=== PATIENT | male | born 1945 | race Hispanic/Latino ===

== ENCOUNTER → 2019-06-08 | Outpatient (CLI) | payer OTHER ==
[2019-06-08 13:26] LABS: CREATININE 1.3 mg/dL (0.5-1.5)
== END | disposition home or self-care (01) ==
LOC: LAB 12:14
PROVIDERS: ATTEND Internal Medicine Cardiovascular Disease
DX: I67.9 Cerebrovascular disease, unspecified (principal); I73.9 Peripheral vascular disease, unspecified
CPT/HCPCS: 36415; 82565; 84520

== ENCOUNTER → 2019-06-09 | Outpatient (CLI) | payer OTHER ==
[~2019-06-09] MED LIST: IOHEXOL-350 75 ML VIAL IV ONE
== END | disposition home or self-care (01) ==
LOC: RAH 07:47
PROVIDERS: ATTEND Internal Medicine Cardiovascular Disease
DX: I70.293 Other atherosclerosis of native arteries of extremities, bilateral legs (principal)
CPT/HCPCS: 75635; Q9967

== ENCOUNTER → 2019-06-18 | Outpatient (CLI) | payer OTHER | END | disposition home or self-care (01) | LOC: SHCH 13:20 | PROVIDERS: ATTEND Internal Medicine Cardiovascular Disease | DX: I65.23 Occlusion and stenosis of bilateral carotid arteries (principal) | CPT/HCPCS: 93880 ==

== ENCOUNTER → 2019-06-22 | Outpatient (CLI) | payer OTHER ==
[~2019-06-22] VITALS: Ht 167.6 cm; Wt 62.6 kg
[~2019-06-22] MED LIST changes: -IOHEXOL-350 75 ML VIAL IV ONE; +REGADENOSON 0.4 MG/5 ML PF SYG IVP SCH
== END | disposition home or self-care (01) ==
LOC: SHCH 08:24 → EDUNIT# 08:30
PROVIDERS: ATTEND Internal Medicine Cardiovascular Disease
DX: I10 Essential (primary) hypertension (principal)
CPT/HCPCS: 78452; 93017; 96374; A9500 ×2; J2785

== ENCOUNTER 2019-08-13 09:37 | Day surgery (SDC) | payer OTHER ==
[2019-08-10 13:00] LABS: BASOPHILS % (AUTO) 1.3 % (0.0-5.0); EOSINOPHILS % (AUTO) 3.7 % (0.0-8.0); HEMATOCRIT 30.9 % (42-54); LYMPHOCYTES % (AUTO) 35.7 % (21.0-51.0); MEAN CORPUSCULAR HEMOGLOBIN 27.3 pg (27.0-33.0); MEAN CORPUSCULAR HGB CONC 32.7 g/dL (32.0-36.0); MEAN CORPUSCULAR VOLUME 83.4 fL (79-99); NEUTROPHILS % (AUTO) 52.3 % (40.0-77.0); NUCLEATED RED BLOOD CELLS 0.1 % (0.0-0.19); PLATELET COUNT (AUTO) 299 K/uL (130-400); RED BLOOD CELL COUNT(AUTO) 3.71 MIL/uL (4.50-6.20); RED CELL DISTRIBUTION WIDTH 17.5 % (11.0-15.5); WHITE BLOOD COUNT (AUTO) 6.1 K/uL (4.8-10.8)
[2019-08-10 13:07] LABS: CREATININE 1.4 mg/dL (0.5-1.5); POTASSIUM 4.6 mmol/L (3.5-5.1)
[2019-08-10 13:12] LABS: INR 1.02 (0.85-1.15); PARTIAL THROMBOPLASTIN TIME 24.3 SEC (26.3-35.5); PROTHROMBIN TIME 10.7 SEC (9.6-11.6)
[2019-08-10 13:38] VITALS: BP 155/73
[2019-08-10 14:16] LABS: APPEARANCE,URINE Clear (CLEAR); BILIRUBIN,URINE Negative (NEGATIVE); COLOR,URINE Yellow (YELLOW); GLUCOSE, URINE (UA) 500 mg/dL (NEGATIVE); KETONES,URINE Negative (NEGATIVE); LEUKOCYTE ESTERASE ,URINE Negative (NEGATIVE); NITRATE,URINE Negative (NEGATIVE); OCCULT BLOOD,URINE Negative (NEGATIVE); PH,URINE 6.5 (5.0-8.0); PROTEIN,URINE Negative (NEGATIVE); UROBILINOGEN,URINE 0.2 mg/dL (0.2-1.0)
--- NOTE | 2019-08-12 13:36 | NUR ---
LABS ABNORMAL LABS REPORTED TO [facility], NO FURTHER ORDERS GIVEN
[~2019-08-13] VITALS: Ht 168.9 cm; Wt 61.6 kg
[2019-08-13] VITALS (10 sets, daily range): BP systolic 101–163; BP diastolic 54–92
[~2019-08-13 09:37] MED LIST changes: +ACET1TAB23 PO; +ATOR-2 PO; +AUD IH; +CETI10TA57 PO; +CLOP75TA32 PO; +FENO145T37 PO; +FLUT9.9S NS; +GLIP5TAB11 PO; +LISI30TA4 PO; +METF-446 PO; +METO-391 PO; +MOME220A2 IH; +OMEP20TA25 PO; -REGADENOSON 0.4 MG/5 ML PF SYG IVP SCH
[2019-08-13] MEDS ORDERED: SODIUM CHLORIDE 0.9% 1000ML 1,000 ML IV ONE (09:39)
--- NOTE | 2019-08-13 10:45 | NUR ---
ASSESSMENT PT HERE FOR PROCEDURE. DENIES ANY PAIN, SOB. DAUGHTER AT BEDSIDE.
[2019-08-13] MEDS ORDERED: SODIUM BICARB 50MEQ 50ML VIAL ONE (12:19)
[2019-08-13] MEDS ORDERED: HEPARIN SODIUM 1000UNIT/ML 10ML VIAL ONE (12:19)
[2019-08-13] MEDS ORDERED: NITROGLYCERIN 5 MG/ML 10 ML VIAL IV ONE (12:19)
[2019-08-13] MEDS ORDERED: IODIXANOL 320 MG/ML 100 ML VIAL ONE (12:19)
[2019-08-13] MEDS ORDERED: LIDOCAINE HCL 2% 20ML ONE (12:20)
--- NOTE | 2019-08-13 13:43 | NUR ---
PROCEDURE PT TAKEN TO PROCEDURE VIA BED BY ALUMINUM MOLDING MACHINE OPERATOR STAFF JOVANA CANNON.
[2019-08-13] MEDS ORDERED: MIDAZOLAM HCL 1 MG/ML 2ML VIAL ONE (13:55)
[2019-08-13] MEDS ORDERED: MEPERIDINE-PF 25 MG/ML SYG ONE (13:55)
[2019-08-13] MEDS ORDERED: HYDRALAZINE HCL 20 MG/ML VIAL ONE (14:52)
[2019-08-13] MEDS ORDERED: ATROPINE SULFATE 0.1 MG/ML 10 ML SYG IVP ONE (15:15)
[2019-08-13] MEDS ORDERED: SODIUM CHLORIDE 0.9% 1000ML 1,000 ML IV SCH (15:26)
[2019-08-13] MEDS ORDERED: GLUCAGON 1MG KIT 1 MG ML IM PRN (15:30)
[2019-08-13] MEDS ORDERED: DEXTROSE 50%-WATER 50 ML DISP.SYRIN IV PRN (15:30)
[2019-08-13] MEDS ORDERED: ACETAMINOPHEN-CODEINE 300/30MG TAB PO PRN ×2 (15:30)
--- NOTE | 2019-08-13 15:36 | NUR ---
PATIENT IN CLINICAL CONSULTANT HOLDING AREA FOR REMOVAL OF RT BRACHIAL SITE. 6FR SHEATH REMOVED USING D-STAT AND MANUAL PRESSURE. PATIENT TOLERATING WELL. VS STABLE - BP 152/77, HR 79, RR 23, O2 SAT 98% RA. BS CHECK - 91.
--- NOTE | 2019-08-13 15:52 | NUR ---
RIGHT BRACHIAL SITE WITHOUT BLEEDING OR HEMATOMA. DRESSING APPLIED. PRESSURE DRESSING AND SPLINT APPLIED TO ARM. PT TRANSFERRED BACK TO [facility]. STRONG RT RADIAL PULSE. DENIES TINGLING OR NUMBNESS TO RT HAND. VS STABLE - BP 132/56, HR 71, RR 19, O2 SAT 99% RA.
--- NOTE | 2019-08-13 16:10 | NUR ---
ASSESSMENT RECEIVED PT FROM FIBERGLASS LAMINATOR STaff. PT AAOX3. PRESSURE DRSG IN PLACE TO RIGHT BRACHIAL SITE. SOFT TO TOUCH. NO BLEEDING, OOZING NOTED. DAUGHTER AT BEDSIDE. INSTRUCTED PT ON IMPORTANCE OF NOT MOVING, LIFTING RIGHT ARM. PT VERBALIZED UNDERSTANDING.
--- NOTE | 2019-08-13 16:25 | NUR ---
REPORT REPORT GIVEN TO Jacklyn TAY RN.
[2019-08-13] MEDS ORDERED: INSULIN HUMULIN R 100 UNIT/ML 3ML SQ SCH (16:30)
--- NOTE | 2019-08-13 20:15 | NUR ---
PT AAOX3, NO C/O PAIN TO RT BRACHIAL ARM, DSTAT TO RT ARM IS D/I, NO HEMATOMA OR BLEEDING. POST CARE INSTRUCTIONS GIVEN TO PT AND DAUGHTER, BOTH VERBALIZED UNDERSTANDING. PT GIVEN PRESCRIPTION. PT STABLE, VITALS STABLE NO DISTRESS. PT DRESSED ON HIS OWN. PT TAKEN OUT IN WHEELCHAIR, DRIVEN HOME BY DAUGHTER.
== END 2019-08-13 20:15 | disposition home or self-care (01) ==
LOC: DAH 09:37
PROVIDERS: ATTEND Internal Medicine Cardiovascular Disease
DX: I70.213 Atherosclerosis of native arteries of extremities with intermittent claudication, bilateral legs (principal); I77.811 Abdominal aortic ectasia; I10 Essential (primary) hypertension; E78.5 Hyperlipidemia, unspecified; E11.9 Type 2 diabetes mellitus without complications; J44.9 Chronic obstructive pulmonary disease, unspecified; F17.210 Nicotine dependence, cigarettes, uncomplicated; F12.90 Cannabis use, unspecified, uncomplicated; Z88.0 Allergy status to penicillin; Z79.84 Long term (current) use of oral hypoglycemic drugs; Z79.899 Other long term (current) drug therapy; Z79.01 Long term (current) use of anticoagulants; Z86.73 Personal history of transient ischemic attack (TIA), and cerebral infarction without residual deficits; Z98.890 Other specified postprocedural states
CPT/HCPCS: 36246; 36415; 71045; 75625; 75716; 80048; 81003; 82948 ×2; 85025; 85610; 85730; 93005; A4215 ×2; A4216; A4221; A4222; A4223 ×3; A4606; C1769; C1894; J0360; J1644 ×2; J2175; J2250; J3490 ×3; J7030; Q9967; 99156; 99157; J0461

== ENCOUNTER 2019-08-24 11:37 | Observation (INO) | payer OTHER ==
[~2019-08-24] VITALS: Ht 167.6 cm; Wt 58.3 kg
[2019-08-24 12:04] LABS: BASOPHILS % (AUTO) 3.3 % (0.0-5.0); EOSINOPHILS % (AUTO) 3.2 % (0.0-8.0); LYMPHOCYTES % (AUTO) 38.6 % (21.0-51.0); MEAN CORPUSCULAR HEMOGLOBIN 26.2 pg (27.0-33.0); MEAN CORPUSCULAR HGB CONC 32.7 g/dL (32.0-36.0); MEAN CORPUSCULAR VOLUME 80.1 fL (79-99); MONOCYTES % (AUTO) 7.4 % (3.0-13.0); NEUTROPHILS % (AUTO) 47.5 % (40.0-77.0); PLATELET COUNT (AUTO) 357 K/uL (130-400); RED BLOOD CELL COUNT(AUTO) 3.63 MIL/uL (4.50-6.20); RED CELL DISTRIBUTION WIDTH 16.8 % (11.0-15.5); WHITE BLOOD COUNT (AUTO) 7.8 K/uL (4.8-10.8)
[2019-08-24 12:07] LABS: CREATININE 1.5 mg/dL (0.5-1.5); POTASSIUM 4.7 mmol/L (3.5-5.1)
[2019-08-24] MEDS ORDERED: SODIUM CHLORIDE 0.9% 500ML 500 ML IV ONE ×2 (12:07→12:47)
[2019-08-24 12:11] LABS: ALBUMIN 3.8 g/dL (3.5-5.0); BILIRUBIN,TOTAL 0.3 mg/dL (0.2-1.0)
[2019-08-24] MEDS ORDERED: DIPHENOXYLATE HCL/ATROPINE 2.5/0.025 MG TAB PO ONE (12:47)
[2019-08-24] MEDS ORDERED: LACTATED RINGERS 1000ML 1,000 ML IV SCH (15:46)
[2019-08-24] MEDS ORDERED: ONDANSETRON HCL 4 MG/2 ML VIAL IV PRN (16:00)
[2019-08-24] MEDS ORDERED: SODIUM CHLORIDE 0.9% 1000ML 0 ML IV ONE (16:22)
[2019-08-24] MEDS ORDERED: PNEUMOCOCCAL VACCINE POLYVALENT 0.5 ML/VIAL [PPV] IM ONE (16:30)
[2019-08-24] MEDS ORDERED: SODIUM CHLORIDE 0.9% 1000ML 1,000 ML IV ONE (16:34)
--- NOTE | 2019-08-24 20:40 | NUR ---
ADMISSION. BROUGHT UP INTO ROOM 404 VIA STRETCHER, AWAKE, ALERT AND RESPONSIVE. ACCOMPANIED BY DAUGHTER AT BEDSIDE. ABLE TO AMBULATE AND VERBALIZE NEEDS. NO C/O PAIN OR DISCOMFORT AT THIS TIME. PATIENT AND DAUGHTER ORIENTED TO ROOM, CALL MEJIA WITHIN REACH, BED IN LOWEST POSITION. Addendum: 08/24/19 at 2049 by JAX KIM RN Amended: Links added.
[2019-08-24 20:45] VITALS: BP 172/70
[2019-08-24] MEDS ORDERED: FAMOTIDINE/PF 20 MG/2 ML VIAL IV SCH (21:00)
[2019-08-24 21:29] VITALS: BP 148/71
[2019-08-24] MEDS: SODIUM CHLORIDE 0.9% 1000ML 1,000 ML IV SCH (21:32)
[2019-08-25 00:21] VITALS: BP 141/66
[2019-08-25] MEDS ORDERED: ACETAMINOPHEN 325 MG TAB PO PRN (00:30)
[2019-08-25 04:21] VITALS: BP 142/67
[2019-08-25 05:37] LABS: BASOPHILS % (AUTO) 1.4 % (0.0-5.0); EOSINOPHILS % (AUTO) 2.8 % (0.0-8.0); HEMATOCRIT 25.7 % (42-54); LYMPHOCYTES % (AUTO) 29.8 % (21.0-51.0); MEAN CORPUSCULAR HGB CONC 33.3 g/dL (32.0-36.0); MEAN CORPUSCULAR VOLUME 81.1 fL (79-99); MONOCYTES % (AUTO) 8.9 % (3.0-13.0); NEUTROPHILS % (AUTO) 57.1 % (40.0-77.0); NUCLEATED RED BLOOD CELLS 0.1 % (0.0-0.19); PLATELET COUNT (AUTO) 275 K/uL (130-400); RED BLOOD CELL COUNT(AUTO) 3.17 MIL/uL (4.50-6.20); RED CELL DISTRIBUTION WIDTH 16.4 % (11.0-15.5); WHITE BLOOD COUNT (AUTO) 6.8 K/uL (4.8-10.8)
[2019-08-25] MEDS: SODIUM CHLORIDE 0.9% 1000ML 1,000 ML IV SCH (05:37)
[2019-08-25 05:56] LABS: ALBUMIN 3.1 g/dL (3.5-5.0); BILIRUBIN,TOTAL 0.3 mg/dL (0.2-1.0); CREATININE 1.2 mg/dL (0.5-1.5); TOTAL PROTEIN, SERUM 6.6 g/dL (6.0-8.3)
[2019-08-25 07:59] VITALS: BP 150/71
[2019-08-25] MEDS ORDERED: ENOXAPARIN SODIUM 30 MG/0.3 ML SQ SCH (09:00)
[2019-08-25 11:47] VITALS: BP 138/72
== END 2019-08-25 12:54 | disposition home or self-care (01) ==
LOC: EDH 11:37 → INTOOBSV 15:46 → EDHIP 15:46 → 4AH 20:33
PROVIDERS: ADMIT Internal Medicine; ATTEND Internal Medicine
DX: K52.9 Noninfective gastroenteritis and colitis, unspecified (principal); R19.7 Diarrhea, unspecified; E86.1 Hypovolemia; N17.9 Acute kidney failure, unspecified; R53.1 Weakness; F17.200 Nicotine dependence, unspecified, uncomplicated; E78.00 Pure hypercholesterolemia, unspecified; I10 Essential (primary) hypertension; E78.5 Hyperlipidemia, unspecified; E11.9 Type 2 diabetes mellitus without complications; Z90.49 Acquired absence of other specified parts of digestive tract; Z79.84 Long term (current) use of oral hypoglycemic drugs; Z79.899 Other long term (current) drug therapy; Z88.0 Allergy status to penicillin
CPT/HCPCS: 36415 ×2; 74176; 80053 ×2; 80061; 82948 ×3; 83036; 83605; 83690 ×2; 85025 ×2; 96361 ×2; 96372; 96374; 99284; A4600; G0378 ×2; J1650; J3490; J7030; J7040 ×2; J7120; 90732; G0009

== ENCOUNTER → 2020-05-11 | Outpatient (CLI) | payer OTHER ==
[~2020-05-11] MED LIST changes: +FENO145T26 PO; -FENO145T37 PO; +HYDR25SU11 PR; -METO-391 PO
== END | disposition home or self-care (01) ==
LOC: RAH 10:35
PROVIDERS: ATTEND Internal Medicine Gastroenterology
DX: R14.0 Abdominal distension (gaseous) (principal)
CPT/HCPCS: 78264; A9541

== ENCOUNTER 2020-08-28 11:51 | Inpatient (IN) | payer OTHER ==
[~2020-08-28] VITALS: Ht 167.6 cm; Wt 60.9 kg
[2020-08-28 12:29] LABS: BASOPHILS % (AUTO) 1.2 % (0.0-5.0); EOSINOPHILS % (AUTO) 3.1 % (0.0-8.0); HEMATOCRIT 43.8 % (42-54); LYMPHOCYTES % (AUTO) 40.1 % (21.0-51.0); MEAN CORPUSCULAR HEMOGLOBIN 30.7 pg (27.0-33.0); MEAN CORPUSCULAR HGB CONC 32.4 g/dL (32.0-36.0); MEAN CORPUSCULAR VOLUME 94.6 fL (79-99); MONOCYTES % (AUTO) 6.8 % (3.0-13.0); NEUTROPHILS % (AUTO) 48.4 % (40.0-77.0); PLATELET COUNT (AUTO) 222 K/uL (130-400); RED BLOOD CELL COUNT(AUTO) 4.63 MIL/uL (4.50-6.20); RED CELL DISTRIBUTION WIDTH 13.5 % (11.0-15.5); WHITE BLOOD COUNT (AUTO) 6.8 K/uL (4.8-10.8)
[2020-08-28 12:35] LABS: CREATININE 1.2 mg/dL (0.5-1.5); POTASSIUM 3.5 mmol/L (3.5-5.1)
[2020-08-28 12:40] LABS: ALBUMIN 3.7 g/dL (3.5-5.0); BILIRUBIN,TOTAL 0.3 mg/dL (0.2-1.0); TOTAL PROTEIN, SERUM 7.8 g/dL (6.0-8.3)
[2020-08-28 14:44] LABS: APPEARANCE,URINE Clear (CLEAR); BILIRUBIN,URINE Negative (NEGATIVE); COLOR,URINE Yellow (YELLOW); GLUCOSE, URINE (UA) 250 mg/dL (NEGATIVE); KETONES,URINE Negative (NEGATIVE); LEUKOCYTE ESTERASE ,URINE Negative (NEGATIVE); NITRATE,URINE Negative (NEGATIVE); OCCULT BLOOD,URINE Negative (NEGATIVE); PROTEIN,URINE Negative (NEGATIVE); UROBILINOGEN,URINE 0.2 mg/dL (0.2-1.0)
[2020-08-28 14:50] LABS: INR 0.95 (0.85-1.15); PARTIAL THROMBOPLASTIN TIME 26.8 SEC (26.3-35.5); PROTHROMBIN TIME 10.3 SEC (9.6-11.6)
[2020-08-28 14:50] LABS: AMPHET/METH SCREEN,URINE NEGATIVE (NEGATIVE); BARBITURATE SCREEN, URINE NEGATIVE (NEGATIVE); BENZODIAZEPINES SCREEN,URINE NEGATIVE (NEGATIVE); CANNABINOID SCREEN,URINE POSITIVE (NEGATIVE); COCAINE SCREEN,URINE NEGATIVE (NEGATIVE); OPIATE SCREEN,URINE NEGATIVE (NEGATIVE); PHENCYCLIDINE SCREEN,URINE NEGATIVE (NEGATIVE)
[2020-08-28 15:01] LABS: BACTERIA,URINE Rare /HPF (None Seen); RBC,URINE 0-1 /HPF (0-1); SQUAMOUS EPITHELIAL CELL,UR Rare /HPF (0-2); WBC,URINE 0-1 /HPF (0-1)
[2020-08-28] MEDS ORDERED: HYDRALAZINE HCL 20 MG/ML VIAL IV PRN (16:00)
[2020-08-28] MEDS ORDERED: GLUCAGON 1MG KIT 1 MG ML IM PRN (16:00)
[2020-08-28] MEDS ORDERED: DEXTROSE 50%-WATER 50 ML DISP.SYRIN IV PRN (16:00)
[2020-08-28] MEDS: INSULIN HUMULIN R 100 UNIT/ML 3ML SQ SCH (21:00)
[2020-08-29 03:20] VITALS: BP 177/60
[2020-08-29 04:58] LABS: HEMATOCRIT 38.9 % (42-54); MEAN CORPUSCULAR HEMOGLOBIN 31.2 pg (27.0-33.0); MEAN CORPUSCULAR HGB CONC 32.9 g/dL (32.0-36.0); MEAN CORPUSCULAR VOLUME 94.9 fL (79-99); RED BLOOD CELL COUNT(AUTO) 4.1 MIL/uL (4.50-6.20); RED CELL DISTRIBUTION WIDTH 13.3 % (11.0-15.5)
[2020-08-29 05:11] LABS: HEMOGLOBIN A1C 7.2 % (4.0-6.0)
[2020-08-29 05:20] LABS: POTASSIUM 3.7 mmol/L (3.5-5.1)
[2020-08-29] MEDS: INSULIN HUMULIN R 100 UNIT/ML 3ML SQ SCH ×4 (06:34→21:00)
[2020-08-29 07:45] VITALS: BP 157/67
[2020-08-29] MEDS: ACETAMINOPHEN 325 MG TAB PO PRN ×2 (07:50→21:48)
[2020-08-29] MEDS ORDERED: GADODIAMIDE 10 MMOL/20 ML VIAL IV ONE (10:10)
[2020-08-29] MEDS: FOLIC ACID 1 MG TABLET PO SCH ×2 (11:02→21:49)
[2020-08-29] MEDS: FAMOTIDINE 20MG TAB 20 MG TAB PO SCH (11:02)
[2020-08-29] MEDS: THIAMINE HCL 100 MG TABLET PO SCH (11:03)
[2020-08-29] MEDS ORDERED: METO25TA6 PO (11:32)
[2020-08-29] MEDS ORDERED: OMEP40CA13 PO (11:32)
[2020-08-29] MEDS ORDERED: TOPI50TA24 PO (11:32)
[2020-08-29 11:41] VITALS: BP 176/68
--- NOTE | 2020-08-29 11:41 | NUR ---
pt's home meds have been updated from list that family brought; topiramax has been marked to be on hold as per verbal orders from dr mishra; i have informed dr malin of need to resume home meds, and fact that his blood pressure is becoming elevated, current bp 176/68, also i have informed him that the hospital is currently out of stock of the prn apresoline ordered for elevated bp; he stated that he would review pt's home medications and resume them.
[2020-08-29] MEDS ORDERED: METOPROLOL TARTRATE 25 MG TAB PO SCH (12:45)
--- NOTE | 2020-08-29 13:42 | NUR ---
pt transfered to room 315, will give report to luz joshua. pending for pt to have mri/mra of head.
[2020-08-29] MEDS ORDERED: NON-FORMULARY MEDICATION 1 EACH (Albuterol Sulfate 2.5 MG) IH PRN (14:00)
[2020-08-29] MEDS ORDERED: ALBUTEROL SULFATE 0.083% 2.5 MG/3 ML INH IH PRN (14:30)
[2020-08-29] MEDS: PHARMACY COMMUNICATION MISC SCH (14:30)
[2020-08-29 16:00] VITALS: BP 156/76
--- NOTE | 2020-08-29 16:10 | NUR ---
DELMA NOTE/IA MET WITH PATIENT AT BEDSIDE. PER PATIENT, LIVES WITH DAUGHTER, NO USE OF DME, INDEPENDENT WITH ADLS, DRIVES, FOLLOWS UP AT [facility], AND FEELS SAFE TO DISCHARGE HOME. Addendum: 08/29/20 at 1611 by NAWAF PHIPPS RN CM Amended: Links added.
[2020-08-29] MEDS: METFORMIN HCL 500 MG TABLET PO SCH (16:14)
[2020-08-29 20:00] VITALS: BP 176/70
[2020-08-29] MEDS ORDERED: CLOPIDOGREL BISULFATE 75 MG TAB PO SCH (20:00)
[2020-08-29] MEDS ORDERED: ATORVASTATIN CALCIUM 20 MG TABLET PO SCH (21:00)
[2020-08-29] MEDS ORDERED: NON-FORMULARY MEDICATION 1 EACH (Metformin HCl 1,000 MG) PO SCH (21:00)
[2020-08-29] MEDS ORDERED: LISINOPRIL 10 MG TABLET PO SCH (21:00)
[2020-08-29] MEDS: HYDROCORTISONE 25 MG SUPPOSITORY PR SCH (21:00)
[2020-08-29] MEDS ORDERED: MOMETASONE FUROATE 220 MCG IH SCH (21:00)
[2020-08-29] MEDS ORDERED: NON-FORMULARY MEDICATION 1 EACH (Lisinopril 30 MG) PO SCH (21:00)
[2020-08-29] MEDS ORDERED: CLOPIDOGREL BISULFATE 75 MG TAB ONE (21:46)
[2020-08-30] VITALS: BP 109/51
[2020-08-30 04:00] VITALS: BP 128/57
[2020-08-30 06:05] LABS: BASOPHILS % (AUTO) 1.2 % (0.0-5.0); EOSINOPHILS % (AUTO) 3.8 % (0.0-8.0); HEMATOCRIT 38.7 % (42-54); LYMPHOCYTES % (AUTO) 43.2 % (21.0-51.0); MEAN CORPUSCULAR HEMOGLOBIN 30.8 pg (27.0-33.0); MEAN CORPUSCULAR HGB CONC 32.8 g/dL (32.0-36.0); MEAN CORPUSCULAR VOLUME 93.7 fL (79-99); MONOCYTES % (AUTO) 8.1 % (3.0-13.0); NEUTROPHILS % (AUTO) 43.4 % (40.0-77.0); PLATELET COUNT (AUTO) 218 K/uL (130-400); RED BLOOD CELL COUNT(AUTO) 4.13 MIL/uL (4.50-6.20); RED CELL DISTRIBUTION WIDTH 13.2 % (11.0-15.5); WHITE BLOOD COUNT (AUTO) 6.8 K/uL (4.8-10.8)
[2020-08-30 06:43] LABS: ALANINE AMINOTRANSFERASE 21 U/L (12-78); ALBUMIN 3.5 g/dL (3.5-5.0); ASPARTATE AMINOTRANSFERASE 19 U/L (10-37); BILIRUBIN,TOTAL 0.3 mg/dL (0.2-1.0); CARBON DIOXIDE 26 mmol/L (21-32); CHLORIDE 105 mmol/L (101-111); CREATININE 1.1 mg/dL (0.5-1.5); GLOMERULAR FILTR. RATE CALC 70 mL/min (>60); GLUCOSE,RANDOM 145 mg/dL (70-105); POTASSIUM 3.5 mmol/L (3.5-5.1); SODIUM SERUM 138 mmol/L (136-145); THYROID STIMULATING HORMONE 3.04 uIU/mL (0.36-3.74); TOTAL PROTEIN, SERUM 7.1 g/dL (6.0-8.3); UREA NITROGEN, BLOOD 18 mg/dL (7-18)
[2020-08-30] MEDS: INSULIN HUMULIN R 100 UNIT/ML 3ML SQ SCH ×3 (06:43→16:30)
[2020-08-30] MEDS ORDERED: ASPIRIN 325MG EC TAB 325 MG TABLET.DR PO SCH (09:00)
[2020-08-30] MEDS ORDERED: GLIPIZIDE 5 MG TABLET PO SCH (09:00)
[2020-08-30] MEDS ORDERED: [UNRECOGNIZED DRUG - REMARK] NS SCH (09:00)
[2020-08-30] MEDS ORDERED: METOPROLOL TARTRATE 25 MG TAB PO SCH (09:00)
[2020-08-30] MEDS ORDERED: FLUTICASONE PROPIONATE 50MCG/SPRAY 16 GM BOTTLE EN SCH (09:00)
[2020-08-30 09:15] VITALS: BP 104/67
[2020-08-30] MEDS: METFORMIN HCL 500 MG TABLET PO SCH ×2 (09:55→17:08)
[2020-08-30] MEDS: FAMOTIDINE 20MG TAB 20 MG TAB PO SCH (09:55)
[2020-08-30] MEDS: FOLIC ACID 1 MG TABLET PO SCH (09:55)
[2020-08-30] MEDS: HYDROCORTISONE 25 MG SUPPOSITORY PR SCH (09:56)
[2020-08-30] MEDS: THIAMINE HCL 100 MG TABLET PO SCH (09:56)
[2020-08-30] MEDS: PHARMACY COMMUNICATION MISC SCH (09:59)
[2020-08-30] MEDS ORDERED: ACETAMINOPHEN PO PRN (10:15)
[2020-08-30] MEDS ORDERED: CODEINE PO PRN (10:15)
[2020-08-30] MEDS ORDERED: ASPI1CPM8 PO (11:34)
[2020-08-30 11:52] VITALS: BP 153/71
[2020-08-30] MEDS ORDERED: CLOPIDOGREL BISULFATE 75 MG TAB PO SCH (12:00)
[2020-08-30] MEDS: ACETAMINOPHEN 325 MG TAB PO PRN (12:52)
[2020-08-30 17:13] VITALS: BP 127/68
--- NOTE | 2020-08-30 17:43 | NUR ---
PATIENT DISCHARGED PATIENT DISCHARGED, IV DISCONTINUED, CATHLON INTACT, BLEEDING CONTROLLED, PATIENT TOLERATED WITHOUT INCIDENT. DISCUSSED WITH PATENT NEW MEDICATIONS AND TO STOP TAKING PLAVIX. DISCUSSED WITH PATIENT HE NEEDED TO [facility] AND ALSO SCHEDULE APPOINTMENT WITH [facility]. PATIENT STATED HE UNDERSTOOD AND HAD NO ADDITIONAL QUESTIONS.
[2020-09-01] MEDS ORDERED: THIAMINE HCL 100 MG TABLET PO SCH (09:00)
== END 2020-08-30 18:00 | disposition home or self-care (01) | DRG 65 ==
LOC: EDH 11:51 → OBSVTOIN 15:54 → EDHIP 15:54 → 3BH 08-29 01:59 → 3CH 08-29 13:54
PROVIDERS: ADMIT Hospitalist; ATTEND Hospitalist
DX: I63.89 Other cerebral infarction (principal); I25.3 Aneurysm of heart; E11.9 Type 2 diabetes mellitus without complications; E78.5 Hyperlipidemia, unspecified; I10 Essential (primary) hypertension; F17.210 Nicotine dependence, cigarettes, uncomplicated; R26.2 Difficulty in walking, not elsewhere classified; I34.0 Nonrheumatic mitral (valve) insufficiency; R47.81 Slurred speech; G43.909 Migraine, unspecified, not intractable, without status migrainosus; R26.9 Unspecified abnormalities of gait and mobility; Z90.49 Acquired absence of other specified parts of digestive tract; Z82.5 Family history of asthma and other chronic lower respiratory diseases; Z83.3 Family history of diabetes mellitus; Z82.49 Family history of ischemic heart disease and other diseases of the circulatory system; Z86.73 Personal history of transient ischemic attack (TIA), and cerebral infarction without residual deficits; Z79.02 Long term (current) use of antithrombotics/antiplatelets; Z79.899 Other long term (current) drug therapy; Z79.84 Long term (current) use of oral hypoglycemic drugs; Z88.0 Allergy status to penicillin
CPT/HCPCS: 36415; 70450; 70544; 70553; 71045; 80048; 80053; 80061; 80305; 81001; 82550; 82607; 82746; 82948; 83036; 83880; 84443; 84484; 85025; 85027; 85610; 85730; 93005; 93306; 93356; 93880; 94664; 97039; A9579; G0378; J1815

== ENCOUNTER 2021-05-12 10:08 | Emergency (ER) | payer OTHER ==
[~2021-05-12] VITALS: Ht 167.6 cm; Wt 61.2 kg
[~2021-05-12 10:08] MED LIST changes: +ASPI1CPM8 PO; -CLOP75TA32 PO; +METO25TA6 PO; -OMEP20TA25 PO; +OMEP40CA21 PO
[2021-05-12 10:24] LABS: BASOPHILS % (AUTO) 1.4 % (0.0-5.0); EOSINOPHILS % (AUTO) 2.8 % (0.0-8.0); HEMATOCRIT 44.8 % (42-54); LYMPHOCYTES % (AUTO) 31.5 % (21.0-51.0); MEAN CORPUSCULAR HEMOGLOBIN 30.2 pg (27.0-33.0); MEAN CORPUSCULAR HGB CONC 32.6 g/dL (32.0-36.0); MEAN CORPUSCULAR VOLUME 92.6 fL (79-99); MONOCYTES % (AUTO) 6.7 % (3.0-13.0); NEUTROPHILS % (AUTO) 57.3 % (40.0-77.0); PLATELET COUNT (AUTO) 207 K/uL (130-400); RED BLOOD CELL COUNT(AUTO) 4.84 MIL/uL (4.50-6.20); WHITE BLOOD COUNT (AUTO) 7.6 K/uL (4.8-10.8)
[2021-05-12 10:31] LABS: CREATININE 1.2 mg/dL (0.5-1.5); POTASSIUM 4.1 mmol/L (3.5-5.1)
[2021-05-12 10:36] LABS: BILIRUBIN,TOTAL 0.3 mg/dL (0.2-1.0); INR 0.97 (0.85-1.15); PROTHROMBIN TIME 10.6 SEC (9.6-11.6); TOTAL PROTEIN, SERUM 8.2 g/dL (6.0-8.3)
[2021-05-12 10:37] LABS: PARTIAL THROMBOPLASTIN TIME 26.8 SEC (26.3-35.5)
[2021-05-12 10:45] LABS: B-TYPE NATRIURETIC PEPTIDE 32 pg/mL (0-100)
[2021-05-12 10:50] VITALS: BP 196/87
[2021-05-12 12:00] VITALS: BP 111/62
[2021-05-12 14:00] VITALS: BP 158/75
[2021-05-12 16:14] VITALS: BP 171/80
== END 2021-05-12 18:56 | disposition critical access hospital (66) ==
LOC: EDH 10:08
DX: I10 Essential (primary) hypertension (principal); H53.2 Diplopia; R51.9 Headache, unspecified; R53.1 Weakness; Z20.822 Contact with and (suspected) exposure to COVID-19; E11.9 Type 2 diabetes mellitus without complications; E78.00 Pure hypercholesterolemia, unspecified; Z88.0 Allergy status to penicillin; F17.200 Nicotine dependence, unspecified, uncomplicated; Z79.01 Long term (current) use of anticoagulants; Z79.02 Long term (current) use of antithrombotics/antiplatelets; Z79.51 Long term (current) use of inhaled steroids; Z79.82 Long term (current) use of aspirin; Z79.84 Long term (current) use of oral hypoglycemic drugs; Z79.899 Other long term (current) drug therapy; Z86.73 Personal history of transient ischemic attack (TIA), and cerebral infarction without residual deficits
CPT/HCPCS: 36415; 70450; 71045; 80053; 82550; 82948; 83880; 84484; 85025; 85610; 85730; 87635; 93005; 99285; C9803

== ENCOUNTER → 2024-04-23 | Outpatient (CLI) | payer OTHER ==
[~2024-04-23] MED LIST changes: -ACET1TAB23 PO; +ALBUTEROL INHALER; +ASPI-1197 PO; -ASPI1CPM8 PO; -ATOR-2 PO; -AUD IH; +AZIT500T4 PO; +CEFD300C3 PO; -CETI10TA57 PO; +CLOP75TA32 PO; -FENO145T26 PO; +FERS325 PO; -FLUT9.9S NS; +Fluticasone Propionate EN; -GLIP5TAB11 PO; -HYDR25SU11 PR; +LISI1TAB51 PO; -LISI30TA4 PO; +MAGN400C PO; -METO25TA6 PO; +METO50TA18 PO; +MODA200T48 PO; -MOME220A2 IH; +MULT400T5 PO; +OMEG100033 PO; +ROSU40TA70 PO; +SERT-439 PO; +SPIRIVA; +UNKNOWN INHALER
[2024-04-23 12:28] LABS: CREATININE 1.1 mg/dL (0.5-1.3)
== END | disposition home or self-care (01) ==
LOC: LAB 11:34
PROVIDERS: ATTEND Internal Medicine Gastroenterology
DX: R63.4 Abnormal weight loss (principal)
CPT/HCPCS: 36415; 82565; 84520

== ENCOUNTER → 2024-04-27 | Outpatient (CLI) | payer OTHER ==
[~2024-04-27] MED LIST changes: +IOHEXOL-350 75 ML VIAL IV ONE
== END | disposition home or self-care (01) ==
LOC: RAH 09:58
PROVIDERS: ATTEND Internal Medicine Gastroenterology
DX: N28.1 Cyst of kidney, acquired (principal); M47.815 Spondylosis without myelopathy or radiculopathy, thoracolumbar region; I70.90 Unspecified atherosclerosis; R63.4 Abnormal weight loss
CPT/HCPCS: 74177; Q9967

== ENCOUNTER 2024-05-21 05:52 | Day surgery (SDC) | payer OTHER ==
[~2024-05-21] VITALS: Ht 167.6 cm; Wt 54.4 kg
[2024-05-21] VITALS (8 sets, daily range): BP systolic 107–136; BP diastolic 52–73; PULSE 71–76; RESP 17–20
[~2024-05-21 05:52] MED LIST changes: -IOHEXOL-350 75 ML VIAL IV ONE
[2024-05-21] MEDS ORDERED: SERT-440 PO (06:30)
[2024-05-21] MEDS: 0.9%NACL 1000ML 1,000 ML IV ONE (06:42)
[2024-05-21] MEDS ORDERED: PROPOFOL 10 MG/ML 20ML VIAL IV ONE ×2 (07:46→08:04)
[2024-05-21] MEDS ORDERED: LIDOCAINE PF 100MG/5ML (2%) SYRINGE 5ML ONE (07:48)
[2024-05-21] MEDS ORDERED: FENTANYL CITRATE PF 50 MCG/1 ML 2ML VIAL ONE (08:05)
== END 2024-05-21 09:30 | disposition home or self-care (01) ==
LOC: DAH 05:52 → ENDO 05:52
PROVIDERS: ATTEND Internal Medicine Gastroenterology
DX: K29.51 Unspecified chronic gastritis with bleeding (principal); K31.89 Other diseases of stomach and duodenum; K55.20 Angiodysplasia of colon without hemorrhage; R63.4 Abnormal weight loss; K31.A19 Gastric intestinal metaplasia without dysplasia, unspecified site; R93.429 Abnormal radiologic findings on diagnostic imaging of unspecified kidney; K59.00 Constipation, unspecified; D50.9 Iron deficiency anemia, unspecified; I10 Essential (primary) hypertension; J44.9 Chronic obstructive pulmonary disease, unspecified; K21.9 Gastro-esophageal reflux disease without esophagitis; Z90.49 Acquired absence of other specified parts of digestive tract; E11.9 Type 2 diabetes mellitus without complications; F17.210 Nicotine dependence, cigarettes, uncomplicated; E78.00 Pure hypercholesterolemia, unspecified; Z86.73 Personal history of transient ischemic attack (TIA), and cerebral infarction without residual deficits; Z88.0 Allergy status to penicillin; Z86.010 Personal history of colon polyps; Z79.2 Long term (current) use of antibiotics; Z79.84 Long term (current) use of oral hypoglycemic drugs; Z79.899 Other long term (current) drug therapy
CPT/HCPCS: 44366; 82948 ×2; 44361; J3010; J7030; J2001; J2704 ×2; A4620; A4215 ×2; A4223; A4222; A4221; A4663; A4606; J3490

== ENCOUNTER 2025-03-08 14:18 | Emergency (ER) | payer OTHER ==
[~2025-03-08] VITALS: Ht 167.6 cm; Wt 52.2 kg
[~2025-03-08 14:18] MED LIST changes: +ALBUHFA IH; -ALBUTEROL INHALER; -ASPI-1197 PO; -AZIT500T4 PO; -CEFD300C3 PO; +CLOP-31 PO; -CLOP75TA32 PO; -FERS325 PO; -LISI1TAB51 PO; -OMEG100033 PO; -ROSU40TA70 PO; +ROSU40TA88 PO; -SERT-439 PO; +SERT-440 PO; -SPIRIVA; +TIOT4MIS2 IH; -UNKNOWN INHALER
--- NOTE | 2025-03-08 15:14 | ERN ---
General Chief Complaint: Weakness Stated Complaint: LOW HEMOGLOBIN, DISORIENTED, UNABLE TO MOVE,WEAK Time Seen by MD: 14:20 Source: patient History of Present Illness Initial Comments PATIENT IS A 79-YEAR-OLD MALE COMING IN TO BE EVALUATED FOR GENERALIZED BODY WEAKNESS. PATIENT STATES THAT HE HAS A HISTORY OF ANEMIA AND HAS BEEN TRACT USE IN THE PAST. HE ALSO STATES THAT HE HAS BEEN EVALUATED BY A AGRICULTURAL ENGINEERING TECHNICIAN AND THEY HAVE NOT FOUND THE SOURCE OF HIS GI BLEED. HE IS PENDING A VISIT IN [place] TO AGRICULTURAL ENGINEERING TECHNICIAN Allergies: Coded Allergies: Penicillins (Unverified Allergy, Unknown, 06/18/19) Home Meds Active Scripts [Fluticasone Propionate] 120 SPRAYS/BOT SPRY No Conflict Check, 0 SPRAYS EN BID for 30 Days, #1 1 Refill Prov:LOUISA FARLEY MD 01/01/24 Reported Medications Clopidogrel Bisulfate (Plavix) 75 Mg Tablet, 1 TAB PO DAILY for 30 Days, #30 TAB 0 Refills 02/08/25 Sertraline HCl (Sertraline HCl) 100 Mg Tablet, 0.5 TAB PO DAILY for 30 Days, #30 TAB 0 Refills 02/08/25 Tiotropium [place] (Spiriva Respimat) 2.5 Mcg/Actuation Mist.inhal, 4 GM IH DAILY 06/02/24 Albuterol Sulfate (Ventolin Hfa/Proventil Hfa/Proair Hfa) 90 Mcg Puff, 90 MCG IH DAILY PRN for SHORTNESS OF BREATH, INHALER 06/02/24 Metoprolol Tartrate (Metoprolol Tartrate) 50 Mg Tablet, 25 MG PO BID, TAB 12/25/23 Multivitamin with Folic Acid (One Daily Multivitamin Tablet) 400 Mcg Tablet, 400 MCG PO DAILYBKFST, TAB 12/25/23 Rosuvastatin Calcium (Rosuvastatin Calcium) 40 Mg Tablet, 40 MG PO HS, TAB 12/25/23 Metformin HCl (Metformin HCl) 1,000 Mg Tablet, 500 MG PO BID, TAB 12/25/23 Modafinil (Modafinil) 200 Mg Tablet, 100 MG PO DAILY, TAB 12/25/23 Magnesium Oxide (Magnesium) 400 Mg Magnesium Capsule, 800 MG PO DAILY, CAP 12/25/23 Omeprazole (Omeprazole) 40 Mg Capsule.dr, 40 MG PO DAILY, CAP 3/7/24 Past Medical History Past Medical History: Anemia, Diabetes-Type II, High Cholesterol, Heart Disease, Hypertension, Stroke, Other Medical History Other: CVA Past Surgical History: Cholecystectomy Social History Social History: Smokers, Lives with family ROS Dictation CONSTITUTIONAL: NO CHILLS, NO FEVER, NO WEAKNESS, NO DIAPHORESIS, NO MALAISE. HEAD/FACE: NO SIGNS OF TRAUMA. EENT: NO EYE PAIN, NO BLURRED VISION, NO TEARING, NO DOUBLE VISION, NO EAR PAIN, NO EAR DISCHARGE, NO NOSE PAIN, NO NASAL CONGESTION, NO THROAT PAIN, NO THROAT SWELLING, NO MOUTH PAIN. RESPIRATORY: NO COUGH, NO ORTHOPNEA, NO SOB, NO STRIDOR, NO WHEEZING. CARDIOVASCULAR: NO CHEST PAIN, NO EDEMA, NO PALPITATIONS, NO SYNCOPE. GASTROINTESTINAL/ABDOMINAL: NO ABDOMINAL PAIN, NO CONSTIPATION, NO DIARRHEA, NO NAUSEA, NO VOMITING. GENITOURINARY: NO ABNORMAL DISCHARGE, NO DYSURIA, NO FREQUENT URINATION, NO HEMATURIA. NO COMPLAINTS OF PAIN IN THE GENITALS. MUSCULOSKELETAL: NO BACK PAIN, NO GOUT, NO JOINT PAIN, NO JOINT SWELLING, NO MUSCLE PAIN, NO MUSCLE STIFFNESS, NO NECK PAIN. INTEGUMENTARY: NO CHANGE IN COLOR, NO CHANGE IN HAIR/NAILS, NO DRYNESS, NO LESION, NO LUMPS, NO RASH. NEUROLOGICAL/PSYCH: NO ANXIETY, NOT DEPRESSED, NO EMOTIONAL PROBLEM, NO HEADACHE, NO NUMBNESS, NO PRE-EXISTING DEFICIT, NO HISTORY OF SEIZURES, NO TREMORS, NO WEAKNESS. HEMATOLOGIC/LYMPHATIC: NOT ANEMIC, NO HISTORY OF BLOOD CLOTS, NO APPARENT BLEEDING, NO BRUISING, GLANDS NOT SWOLLEN. ALL SYSTEMS NEGATIVE, EXCEPT NOTED. Physical Exam Physical Exam Dictation VITAL SIGNS: REVIEWED. GENERAL APPEARANCE: ALERT, ORIENTED X3, NO ACUTE DISTRESS, OBESE. HEAD AND FACE: NON-TRAUMATIC. EYES: PERRL, PINK CONJUNCTIVAS, EYELID NO TRAUMA, ANTERIOR CHAMBER CLEAR. EARS: PINNAS INTACT AND NO SIGNS OF TRAUMA OR ERYTHEMA. EAR CANALS CLEAR AND NO DISCHARGE. TMS NO ERYTHEMA. NOSE: NO DISCHARGE, NO BLEEDING. OROPHARYNX: MOUTH NORMAL, TEETH NO CARIES, TONGUE PINK. PHARYNX CLEAR, NO ERYTHEMA. TONSILS NO EXUDATES, NO ABSCESSES NOTED. MUCOUS MEMBRANE MOIST. NECK: SUPPLE, NON-TENDER, NO THYROMEGALY, NO MASSES, NO JVD, NO BRUITS. BREAST: DEFERRED. CHEST: NO TENDERNESS, NO CREPITUS, NO PARADOXICAL MOVEMENT, NO RETRACTIONS. LUNGS: CLEAR, WELL-VENTILATED, SYMMETRIC, NO RALES, NO WHEEZING, NO RHONCHI, NO STRIDOR, GOOD BREATH SOUNDS BILATERALLY. HEART: REGULAR RATE, REGULAR RHYTHM, NO MURMUR, NO GALLOPS. VASCULAR: NO PERIPHERAL EDEMA. ABDOMEN: SOFT, POSITIVE BOWEL SOUNDS, NONDISTENDED, NO GUARDING, NONTENDER, NO REBOUND, NO MASSES NO HEPATOMEGALY, NO SPLENOMEGALY, NO ERVIN'S SIGN, NO HERNIAS. RECTAL: DEFERRED. GENITAL: DEFERRED. NEUROLOGICAL: NORMAL SPEECH, GROSS MOTOR FUNCTION INTACT, GROSS SENSORY FUNCTION INTACT. MUSCULOSKELETAL: NECK NONTENDER, FULL RANGE OF MOTION, BACK NONTENDER, FULL RANGE OF MOTION. EXTREMITIES: NONTENDER, FULL RANGE OF MOTION. SKIN: COLOR PINK, DRY, NO TURGOR, NO RASH, NO LACERATIONS, NO ABRASIONS, NO CONTUSIONS. LYMPHATICS: DEFERRED. Results Laboratory and Microbiology Lab and Micro Result Laboratory Tests Test 03/08/25 16:29 White Blood Count 8.4 K/uL (4.8-10.8) Red Blood Count 3.34 MIL/uL (4.50-6.20) L Hemoglobin 9.0 g/dL (14.0-18.0) L Hematocrit 28.9 % (42-54) L Mean Corpuscular Volume 86.5 fL (79-99) Mean Corpuscular Hemoglobin 26.9 pg (27.0-33.0) L Mean Corpuscular Hemoglobin Concent 31.1 g/dL (32.0-36.0) L Red Cell Distribution Width 19.6 % (11.0-15.5) H Platelet Count 324 K/uL (130-400) Mean Platelet Volume 11.7 fL (7.5-10.5) H Immature Granulocyte % (Auto) 0.5 % (0-1) Neutrophils (%) (Auto) 75.2 % (40.0-77.0) Lymphocytes (%) (Auto) 14.9 % (21.0-51.0) L Monocytes (%) (Auto) 6.5 % (3.0-13.0) Eosinophils (%) (Auto) 1.9 % (0.0-8.0) Basophils (%) (Auto) 1.0 % (0.0-5.0) Neutrophils # (Auto) 6.3 K/uL (1.8-7.7) Lymphocytes # (Auto) 1.3 K/uL (1.0-4.8) Monocytes # (Auto) 0.6 K/uL (0.1-1.0) Eosinophils # (Auto) 0.16 K/uL (0.00-0.70) Basophils # (Auto) 0.08 K/uL (0.00-0.20) Absolute Immature Granulocyte (auto 0.04 K/uL (0-1) Nucleated Red Blood Cells 0.0 % (0.0-0.19) Red Blood Cell Morphology See comments Sodium Level 143 mmol/L (136-145) Potassium Level 3.8 mmol/L (3.5-5.1) Chloride Level 106 mmol/L (101-111) Carbon Dioxide Level 28 mmol/L (21-32) Blood Urea Nitrogen 37 mg/dL (7-18) H Creatinine 1.1 mg/dL (0.5-1.3) Glomerular Filtration Rate Calc 69 mL/min (>90) Random Glucose 146 mg/dL (70-105) H Total Calcium 9.6 mg/dL (8.5-10.1) Labs Reviewed?: Yes MDM MDM: DIFFERENTIAL DIAGNOSIS: Anemia, GI bleed, RATIONALE: TESTS CONSIDERED AND ORDERED SECONDARY TO SHARED DECISION MAKING INCLUDE: PREVIOUS OUTSIDE RECORDS REVIEWED: OLD ER VISITS. RISK OF COMPLICATION AND/OR MORBIDITY OR MORTALITY OF PATIENT MANAGEMENT: NONE MEDICATIONS-PER MEDICATION RECONCILIATION NEED FOR HOSPITALIZATION: PATIENT DOES NOT MEET CRITERIA FOR HOSPITALIZATION. Patient is a 79-year-old male coming in to be evaluated for anemia. Patient states that he has had multiple endoscopies and colonoscopies and have yet to find the source of his GI bleed. Patient is pending a visit in [place] for ongoing evaluation and GI bleed. Hemoglobin was 9 family was concerned that patient might need a transfusion. Patient has been stable throughout ER visit. Patient will be discharged in stable condition with a diagnosis of anemia and chronic GI bleed. ED Course Orders Procedure Category Date Status Time Cbc With Differential LAB 03/08/25 Complete 14:50 Basic Metabolic Panel LAB 03/08/25 Complete 14:50 Type And Screen BBK 03/08/25 Complete 14:50 Vital Signs Date Time Temp Pulse Resp B/P (MAP) Pulse Ox O2 Delivery O2 Flow Rate FiO2 03/08/25 16:40 97.7 69 16 127/54 98 Room Air* 0 21 03/08/25 14:43 97.7 86 20 114/57 97 DX & DISP Disposition: Discharge Decision to Admit Time: 17:53 Departure Impression: Primary Impression: Wellness examination Additional Impressions: Anemia, History of GI bleed Condition: Stable Additional Instructions: FOLLOW-UP WITH PRIMARY CARE PROVIDER IN 1 TO 2 DAYS. TAKE MEDICATIONS DIRECTED HERE IN THE EMERGENCY ROOM. OKAY TO CONTINUE HOME MEDICATIONS UNLESS OTHERWISE DISCUSSED DURING YOUR VISIT IN THE EMERGENCY ROOM TODAY. RETURN TO YOUR NEAREST EMERGENCY ROOM IF SYMPTOMS WORSEN OR IF THERE IS NO IMPROVEMENT. CALL 911 IF YOU NEED IMMEDIATE ASSISTANCE. TAKE TYLENOL [id number] NEEDED AND IF NO CONTRAINDICATIONS ARE PRESENT. INCREASE ORAL HYDRATION. A WOUND CULTURE OR URINE CULTURE WAS ORDERED HERE IN THE EMERGENCY ROOM DEPARTMENT PLEASE FOLLOW-UP WITH PRIMARY CARE PROVIDER AND ADVISE THEM TO GET REPEAT PORTS FROM OUR FACILITY. IF YOU HAD ANY JUAN JOSE WRAP/SPLINTS THAT WERE APPLIED HERE, PLEASE DO NOT REMOVE THEM UNTIL YOU SEE YOUR PRIMARY CARE OR SPECIALTY. Referrals: Referrals: LORY RETANA MD (PCP) Time of Disposition: 17:53 MILTON ROBERT MD March 08, 2025 15:14
[2025-03-08 16:38] LABS: BASOPHILS # (AUTO) 0.08 K/uL (0.00-0.20); EOSINOPHILS # (AUTO) 0.16 K/uL (0.00-0.70); EOSINOPHILS % (AUTO) 1.9 % (0.0-8.0); HEMATOCRIT 28.9 % (42-54); IMMATURE GRANULOCYTE ABSOLUTE 0.04 K/uL (0-1); LYMPHOCYTES # (AUTO) 1.3 K/uL (1.0-4.8); LYMPHOCYTES % (AUTO) 14.9 % (21.0-51.0); MEAN CORPUSCULAR HEMOGLOBIN 26.9 pg (27.0-33.0); MEAN CORPUSCULAR HGB CONC 31.1 g/dL (32.0-36.0); MEAN CORPUSCULAR VOLUME 86.5 fL (79-99); MONOCYTES # (AUTO) 0.6 K/uL (0.1-1.0); MONOCYTES % (AUTO) 6.5 % (3.0-13.0); NEUTROPHILS # (AUTO) 6.3 K/uL (1.8-7.7); NEUTROPHILS % (AUTO) 75.2 % (40.0-77.0); PLATELET COUNT (AUTO) 324 K/uL (130-400); RED BLOOD CELL COUNT(AUTO) 3.34 MIL/uL (4.50-6.20); RED CELL DISTRIBUTION WIDTH 19.6 % (11.0-15.5); WHITE BLOOD COUNT (AUTO) 8.4 K/uL (4.8-10.8)
--- NOTE | 2025-03-08 16:38 | NUR ---
PT ARRVIED TO [facility] AT 1630 FOR TREATMENT.
[2025-03-08 16:58] LABS: CREATININE 1.1 mg/dL (0.5-1.3); POTASSIUM 3.8 mmol/L (3.5-5.1)
[2025-03-08 17:49] VITALS: BP 117/54; PULSE 74; RESP 16; TEMP 98.1; O2SAT 97
--- NOTE | 2025-03-08 18:00 | NUR ---
PT GIVEN INSTRUCTIONS FOR HOME VERBALIZED UNDERSTANDING, PT HAD NO IV THIS VISIT, NO NEW MEDICATIONS AT THIS TIME. PT TAKEN OUT IN HIS PERSONAL W/C DRIVEN HOME BY SON.
== END 2025-03-08 18:04 | disposition home or self-care (01) ==
LOC: EDH 14:18
DX: D64.9 Anemia, unspecified (principal); E11.9 Type 2 diabetes mellitus without complications; E78.00 Pure hypercholesterolemia, unspecified; F17.200 Nicotine dependence, unspecified, uncomplicated; I10 Essential (primary) hypertension; Z79.02 Long term (current) use of antithrombotics/antiplatelets; Z79.84 Long term (current) use of oral hypoglycemic drugs; Z79.899 Other long term (current) drug therapy; Z86.73 Personal history of transient ischemic attack (TIA), and cerebral infarction without residual deficits; Z88.0 Allergy status to penicillin; Z90.49 Acquired absence of other specified parts of digestive tract
CPT/HCPCS: 36415; 80048; 85025; 86850; 86900; 86901; 99283; 99284